=== PATIENT | female | born 1945 | race Caucasian/White ===

== ENCOUNTER 2016-12-02 14:27 | Inpatient (IN) | payer MEDICARE ==
[~2016-12-02] VITALS: Ht 149.9 cm; Wt 91.0 kg
[~2016-12-02 14:27] MED LIST changes: -3-IN3MIS; -BACT800T5 PO; -CANE; -CYCL1TAB29 PO; -DOCU1CAP39 PO; -ENOX40P SQ; -GABA100C4 PO; -GETGO ROLLING W1 MI1; -LIDO5DIS35 T-DERMAL; -LYRI75CA PO; -OXYC-392 PO; -OXYC1CAP PO; -SULFPOW
[2016-12-02] MEDS ORDERED: BACT800T5 PO (16:49)
--- NOTE | 2016-12-05 18:12 | MH ---
cc: ANGELA GONZALES M.D., DAVID K. M.D. ARAB, DINESH MD DATE OF ADMISSION 12/06/2016 ADMISSION DIAGNOSIS Lumbar degenerative disk disease. HISTORY OF PRESENT ILLNESS This is a 71-year-old female who presented to us for evaluation of low back pain. She a year ago had bilateral hip pain and saw an orthopedist who evaluated her and said it was in her hips and recommended physical therapy for her back. She states she did this and her pain improved over the summer. In June of 2016 she had an injection in her neck for neck pain as she states that her pain was exacerbated in her neck and had to go to the emergency room for relief. She states her pain in the low back also became exacerbated. She states the pain radiates intermittently into the lower extremities all over. She states she has soreness all the time in her lower extremities. She gets cramps in her feet and an electrical sensation in her calves. She has numbness in her low back and it extends into the right anterior thigh. Standing is more comfortable position for her and lying down is the worst position. She relates that walking aggravates her pain and she is unable to lean for to alleviate some of the pain. She is very tearful and frustrated with her activity restriction and her pain. She has been using one to two Lortab a day although her pain is not controlled with this. We have previously seen her in 2014 for cervical stenosis and recommended conservative management. She complains of ongoing neck pain but states her low back symptoms are worse at this point. PAST MEDICAL HISTORY Significant for: 1. Hypertension. 2. Gastroesophageal reflux disease. 3. Headaches. 4. Bilateral carpal tunnel release in 1999. 5. Arthroscopic knee surgery in 2006. 6. Rotator cuff repair in her shoulder. 7. Sinus surgery. 8. Cholecystectomy. ALLERGIES TO MEDICATIONS SHE IS ALLERGIC TO LEVAQUIN. CURRENT MEDICATIONS 1. She is on aspirin 81 mg daily. 2. Lisinopril 40 mg daily. 3. Hydrochlorothiazide 12.5 mg daily. 4. Digoxin 0.125 mg daily. 5. Delzicol 400 mg two tablets three times a day. 6. Pantoprazole 40 mg daily. 7. Vitamin D3 5000 daily. FAMILY HISTORY Mother is at 75 years old, had cancer. Father is at 65 years old, had myocardial infarction. Her sister is alive at 78 years old, had a stroke. She has another sister who is 77 years old and lives in chronic pain. She has a brother who is alive 76 years old, has heart disease. Another brother who is at unknown age of cancer. And another brother who is 70 and has diabetes. SOCIAL HISTORY She is retired. She has children. She does not smoke although has previously smoked. She drinks 0-2 drinks of alcohol per day. REVIEW OF SYSTEMS CONSTITUTIONAL: She denies any fever or chills. EARS, NOSE, AND THROAT: No pharyngitis or exudate or bloody drainage from her nose. CARDIOVASCULAR: She denies any chest pain, palpitations. RESPIRATORY: No cough or shortness of breath. GENITOURINARY: No dysuria or hematuria. MUSCULOSKELETAL: Positive for neck and low back pain. SKIN: No rashes or pruritus. NEUROLOGIC: No difficulty with speech or memory. GASTROINTESTINAL: No abdominal pain or constipation. No nausea. PSYCHIATRIC: No anxiety or depression symptoms. ENDOCRINE: No polyuria or polydipsia. HEMATOLOGIC: No bleeding tendencies but positive for bruising tendencies. PHYSICAL EXAMINATION HEAD: Normocephalic, atraumatic. NECK: Supple. No carotid bruits heard on auscultation. LUNGS: Clear to auscultation bilaterally. HEART: Regular rate and rhythm. Normal S1-S2. ABDOMEN: Soft and nontender. Positive bowel sounds. SKIN: Reveals no cyanosis or erythema. MUSCULOSKELETAL: She has 5/5 strength in the upper and lower extremities. NEUROLOGICAL: Awake and alert, oriented. Cranial nerves II through XII appear grossly intact. Speech is fluent. Comprehension is good. Patellar reflexes are 2+ bilaterally. Achilles reflexes are absent. IMAGING Data reviewed, reviewed an MRI of the lumbar spine from September 16, 2016 which reveals a grade 1 L4-L5 spondylolisthesis along with disk protrusion and facet hypertrophy and disk degeneration with overall moderate to severe spinal stenosis. There is lesser degree of degenerative changes at the L2-L3, L3-L4 levels. IMPRESSION A 71-year-old female with chronic history of low back pain along with neurogenic claudication symptoms as well as chronic neck pain. She has failed conservative treatment measures including physical therapy and her symptoms are progressive and debilitating with very restricted activity status at this point. She has significant L4-L5 spinal stenosis along with degenerative disk disease and facet arthropathy and grade 1 / 2 spondylolisthesis. PLAN We have discussed treatment options with the patient and she is requesting that we proceed with surgical intervention and we have recommended a L4-L5 transforaminal decompression interbody fusion in detail. We have obtained cardiac clearance from Dr. Martinez. We have discussed the risks involved with surgery which include but not limited to bleeding, infection, muscle weakness, voice hoarseness, difficulty swallowing, heart attack, stroke, blood clots, non fusion, scar tissue formation among others. The patient states that she understands the procedure as well as the risks involved and she is requesting that we proceed and she is therefore scheduled accordingly. DICTATED BY: Mark Webb PA-C MD PEBBLES Gross/KK /5:24 PM /5:49 PM
[2016-12-06] MEDS ORDERED: METOPROLOL TARTRATE 25 MG TAB PO PRN (06:30)
[2016-12-06] MEDS ORDERED: SODIUM CHLORID 0.9% 500 ML IV PRN (06:30)
[2016-12-06] MEDS ORDERED: CHLORHEXIDINE GLUCONATE 2 % 1 PACK (2 CLOTHS) TOPICAL PRN (06:30)
[2016-12-06] MEDS: SODIUM CHLOR 0.9% 1000 ML INJ 1,000 ML IV SCH ×2 (06:30→06:57)
[2016-12-06] MEDS ORDERED: VANCOMYCIN HCL 1000 MG ON-CALL/NS 250 ML IV SCH ×2 (06:30)
[2016-12-06] MEDS ORDERED: LACTATED RINGER'S 1000 ML IV PRN (06:30)
[2016-12-06] MEDS ORDERED: POVIDONE IODINE 5% (ANTISEPSIS KIT) 4 APPLICATIONS EACH NARE PRN (06:30)
[2016-12-06] MEDS ORDERED: INSULIN HUMAN REGULAR 1,000 UNITS/10 ML VIAL SQ PRN (06:30)
[2016-12-06 06:51] VITALS: BP 140/64; PULSE 76; RESP 20; TEMP 97.9; O2SAT 96
[2016-12-06] MEDS ORDERED: THROMBIN (TOPICAL) 5,000 UNIT VIAL ONE (07:18)
[2016-12-06] MEDS ORDERED: GELFOAM SIZE 100 ONE (07:19)
[2016-12-06] MEDS ORDERED: MIDAZOLAM HCL 2 MG/2 ML VIAL ONE (08:48)
[2016-12-06] MEDS ORDERED: fentaNYL CITRATE 250 MCG/5 ML AMP ONE (08:48)
[2016-12-06] MEDS ORDERED: HYDROmorphone HCL PF 2 MG/ML VIAL ONE (08:48)
[2016-12-06] MEDS: BUPIVACAINE/EPINEPHRINE 0.5% PF 30 ML VIAL ONE ×2 (09:39→11:31)
[2016-12-06] MEDS: VANCOMYCIN HCL 1000 MG VIAL ONE ×2 (09:45→11:31)
[2016-12-06] MEDS ORDERED: NEOSTIGMINE 3 MG/3 ML SYR IV ONE (12:00)
[2016-12-06] MEDS ORDERED: PROPOFOL 200 MG/20 ML AMP IV ONE (12:00)
[2016-12-06] MEDS ORDERED: NORMOSOL R INJ 2,000 ML IV ONE (12:00)
[2016-12-06] MEDS ORDERED: ePHEDrine/NS 25 MG/5 ML SYR IV ONE (12:00)
[2016-12-06] MEDS ORDERED: ONDANSETRON HCL 4 MG/2 ML VIAL IV PUSH ONE (12:00)
[2016-12-06] MEDS ORDERED: LACTATED RINGER'S 1000 ML INJ 1,000 ML IV ONE (12:00)
[2016-12-06] MEDS: NS + KCL 20 MEQ INJ 1,000 ML IV SCH ×2 (12:25→21:02)
[2016-12-06] MEDS ORDERED: ZOLPIDEM TARTRATE 5 MG TAB PO PRN (12:30)
[2016-12-06] MEDS ORDERED: diphenhydrAMINE HCL 50 MG/ML VIAL IV PRN (12:30)
[2016-12-06] MEDS ORDERED: ONDANSETRON HCL 4 MG/2 ML VIAL IV PRN (12:30)
[2016-12-06] MEDS ORDERED: POTASSIUM CHLOR 20 MEQ PREMIX 100 ML IV PRN (12:30)
[2016-12-06] MEDS ORDERED: RESP: ALBUTEROL 2.5 MG/3 ML NEB (PRN) NEB (12:30)
[2016-12-06] MEDS ORDERED: ACETAMINOPHEN 325 MG TAB PO PRN (12:30)
[2016-12-06] MEDS ORDERED: NALOXONE HCL 0.4 MG/ML AMP IV PRN (12:30)
[2016-12-06] MEDS ORDERED: ALUMINUM/MAGNESIUM/SIMETH 30 ML CUP PO PRN (12:30)
[2016-12-06] MEDS ORDERED: MAGNESIUM HYDROXIDE SUSP 30 ML CUP PO PRN (12:30)
[2016-12-06] MEDS ORDERED: PROCHLORPERAZINE INJ 10 MG/2 ML VIAL IV PUSH PRN (12:30)
[2016-12-06] MEDS ORDERED: MAGNESIUM SULFATE INJ 2 GM in SODIUM CHLORIDE 0.9% INJ 100 ML IV PRN (12:30)
[2016-12-06] MEDS ORDERED: CALCIUM GLUCONATE INJ 1 GM in SODIUM CHLORIDE 0.9% INJ 100 ML IV PRN (12:30)
[2016-12-06] MEDS ORDERED: cloNIDine HCL 0.1 MG TAB PO PRN (12:30)
[2016-12-06] MEDS ORDERED: ACETAMINOPHEN/HYDROcodone 325 MG/10 MG TAB PO PRN ×2 (12:30)
[2016-12-06] MEDS ORDERED: SODIUM CHLORIDE 0.9% FLUSH 10 ML FLUSH IV FLUSH PRN (12:30)
[2016-12-06] MEDS ORDERED: MENTHOL LOZENGE BUCCAL PRN (12:30)
--- NOTE | 2016-12-06 12:30 | PD.OP ---
Charbel Garza MD Operative Report Date of Surgery: Dec 06, 2016 Preoperative Diagnosis: Intractable low back pain with neurogenic claudication; lumbar L4-5 degenerative disc disease with facet and ligamentum flavum hypertrophy with associated spinal stenosis and grade 1 spondylolisthesis Postoperative Diagnosis: Same Procedure: Lumbar L4-5 transforaminal interbody fusion; L4-5 decompressive laminectomy; L4- 5 pedicle screw fixation; L4-5 interbody cage placement; microsurgical technique Anesthesia: Gen. endotracheal by Aaron Rebollar Surgeon: Darien Yoder M.D. Scientific Database Curator(s): Aarti Moreno Operation and Findings: Following initiation of general endotracheal anesthesia, the patient had a Cortés catheter placed along with sequential compression devices. A gram of vancomycin was administered intravenously and she was turned in a prone position on a Feroz frame, on a Huey table, and all pressure points adequately padded. The lumbosacral region was then prepped with Chloraprep and sterilely draped with Ioban along the usual sterile draping. A right paraspinal skin incision was then made extending from the L4-L5 level after infiltrating the skin with 0.5% Marcaine with epinephrine solution extending down through the fascia. The muscle fibers were split using avascular fatty plane and detached from the underlying facets, transverse process and lateral portion of lamina on the right side and a self-retaining retractor used for exposure. Intraoperative fluoroscopy was also used for level of confirmation along with microscope magnification for further dissection. There was significant facet and ligamentum flavum hypertrophy noted at the L4-5 levels. Right L4-5 facet was resected with a drill bit along with the lamina and there was severe foraminal and spinal stenosis from hypertrophied ligamentum flavum and facet which were decompressed bilaterally through the unilateral approach. There was significant disc height collapse along with disc protrusion and spondylolisthesis also leading to the foraminal stenosis. Epidural hemostasis was achieved with bipolar cautery and Gelfoam with thrombin. Subsequently entered into the disc space at the L4-5 level with a #15 blade and gracia were used for discectomy. I then placed PEEK cage packed with local autograft bone and more local autograft bone was packed adjacent to the cage in interspace for added interbody fusion. With placement of the cage, I was able to distract the interspace and opened up the foramen further bilaterally. Subsequently in order to facilitate the fusion and provide stabilization, pedicle screw fixation was undertaken using [place] spine screws on entry point at the right L4-5 levels at the junction of the transverse process and facet. Subsequently using AP and lateral fluoroscopy tap and screw placement. The screws were then connected with a ezio and locked in place with caps. The construct appeared very secure at this point. The area was then copiously irrigated with Vancomycin solution and powder. The retractors were removed and the bipolar cautery used for hemostasis. The muscle fascia was then approximated using 2-0 Vicryl interrupted stitches and then 3-0 Vicryl subcuticular stitches also placed in interrupted fashion. The final skin closure was completed with Mastisol and Steri-Strips. A sterile dressing was then applied. The patient then turned in supine position, extubated and taken to recovery room. There were no intraoperative complications. All sponge and needle counts were correct at the end of procedure. Estimated blood loss about 200 ml. Darien Yoder MD Dec 06, 2016 12:30
[2016-12-06] MEDS ORDERED: DO NOT ADM ANY ANTICOAGULANT DRUGS PRN (12:45)
[2016-12-06 13:24] LABS: AUTOMATED NEUTROPHIL # 7.9 TH/MM3 (1.8-7.7); BASOPHIL % 0.2 % (0.0-2.0); EOSINOPHIL % 0.1 % (0.0-4.0); HEMATOCRIT 34.3 % (35.0-46.0); HEMO FLAGS DIFF FINAL; LYMPH % 7.1 % (9.0-44.0); LYMPHOCYTE # 0.6 TH/MM3 (1.0-4.8); MEAN CELL VOLUME 90.6 FL (80.0-100.0); MEAN CORPUSCULAR HEMOGLOBIN 30.9 PG (27.0-34.0); MEAN CORPUSCULAR HGB CONC 34.1 % (32.0-36.0); MONO % 1.7 % (0.0-8.0); NEUT % 90.9 % (16.0-70.0); PLATELET COUNT 220 TH/MM3 (150-450); RED BLOOD COUNT 3.79 MIL/MM3 (4.00-5.30); RED CELL DISTRIBUTION WIDTH 13.3 % (11.6-17.2); WHITE BLOOD COUNT 8.7 TH/MM3 (4.0-11.0)
[2016-12-06 13:42] LABS: BICARBONATE 28.5 MEQ/L (21.0-32.0)
[2016-12-06] MEDS: PCA - TOTAL MG MORPHINE DELIVERED PER SHIFT SCH ×2 (14:00→21:27)
[2016-12-06] MEDS: MORPHINE SULFATE 30 MG/30 ML PCA IV SCH (14:29)
[2016-12-06 16:00] VITALS: BP 102/51; PULSE 61; RESP 18; TEMP 96.8; O2SAT 94
--- NOTE | 2016-12-06 17:20 | RADRPT ---
EXAM DATE/TIME: 12/06/2016 09:17 [facility] COMPARISON: No previous studies available for comparison. EXTERNAL COMPARISON : [facility] INDICATIONS : Fusion L4,L5 with screw and ezio placement., MEDICAL HISTORY : None. SURGICAL HISTORY : None. ENCOUNTER: Initial ACUITY: 1 day PAIN SCORE: Non-responsive. LOCATION: Lumbar spine. FINDINGS: There is anterior and posterior fusion with pedicle screws and interbody graft from L4-L5. The alignm ent is anatomic. CONCLUSION: 1. Postsurgical changes as above. Charbel Stubbs MD on December 06, 2016 at 17:18 Board Certified Radiologist. This report was verified electronically.
[2016-12-06 20:00] VITALS: BP 117/57; PULSE 71; RESP 17; TEMP 96.5; O2SAT 95
[2016-12-06] MEDS: sulfaSALAzine EC 500 MG TABEC PO SCH (20:57)
[2016-12-06] MEDS: SODIUM CHLORIDE 0.9% FLUSH 10 ML FLUSH IV FLUSH SCH (21:00)
[2016-12-06] MEDS: DOCUSATE SODIUM 100 MG CAP PO SCH (21:01)
[2016-12-06] MEDS: SULFAMETHOXAZOLE-TRIMETHOPRIM DS 800-160 MG TAB PO SCH (21:01)
[2016-12-07] VITALS: BP 109/55; PULSE 67; RESP 16; TEMP 96.5; O2SAT 96
[2016-12-07 04:00] VITALS: BP 119/77; PULSE 73; RESP 17; TEMP 97.3; O2SAT 95
[2016-12-07] MEDS: MORPHINE SULFATE 30 MG/30 ML PCA IV SCH (05:36)
[2016-12-07] MEDS: PCA - TOTAL MG MORPHINE DELIVERED PER SHIFT SCH ×3 (05:58→17:32)
[2016-12-07] MEDS: SODIUM CHLOR 0.9% 1000 ML INJ 1,000 ML IV SCH (06:00)
[2016-12-07 08:00] VITALS: BP 117/50; PULSE 85; RESP 18; TEMP 100.7; O2SAT 94
[2016-12-07] MEDS: DOCUSATE SODIUM 100 MG CAP PO SCH ×2 (09:22→19:29)
[2016-12-07] MEDS: SULFAMETHOXAZOLE-TRIMETHOPRIM DS 800-160 MG TAB PO SCH ×2 (09:22→19:29)
[2016-12-07] MEDS: FOLIC ACID 1 MG TAB PO SCH (09:22)
[2016-12-07] MEDS: HYDROCHLOROTHIAZIDE 12.5 MG CAP PO SCH (09:23)
[2016-12-07] MEDS: LOSARTAN 25 MG TAB PO SCH (09:24)
[2016-12-07] MEDS: DIGOXIN 0.125 MG TAB PO SCH (09:24)
[2016-12-07] MEDS: ASPIRIN EC 81 MG TABEC PO SCH (09:24)
[2016-12-07] MEDS: POLYETHYLENE GLYCOL 17 GM PKG PO SCH (09:26)
[2016-12-07] MEDS: PANTOPRAZOLE SOD 40 MG DELAYED RELEASE TAB PO SCH (09:26)
[2016-12-07] MEDS: sulfaSALAzine EC 500 MG TABEC PO SCH ×2 (09:31→19:29)
[2016-12-07] MEDS: SODIUM CHLORIDE 0.9% FLUSH 10 ML FLUSH IV FLUSH SCH ×2 (09:34→19:29)
--- NOTE | 2016-12-07 10:33 | HHI.NSPN ---
(Mark Webb) History Chief Complaint: incisional back pain. (Mark Webb) Interval History 12/07/16: Patient awake and alert. She is sitting up in a chair with the LSO brace and place. She complains of incisional back pain. She is using a morphine ELECTRICAL AND INSTRUMENTATION MANAGER but states she still has a lot of pain. She denies any radiculopathy or paresthesias in her lower extremities. She did say that she has some paresthesias in the anterior and posterior right leg yesterday but this has resolved this morning. She states the oral pain medication makes her nauseated secondary to the Tylenol and she is therefore not using it. (Mark Webb) Review of Systems Respiratory: Negative for: shortness of breath, cough, sputum Cardiovascular: Negative for: chest pain Gastrointestinal: Negative for: nausea, vomitting, diarrhea, constipation ( Mark Webb) Exam Results Vital Signs Date Time Temp Pulse Resp B/P Pulse Ox O2 Delivery O2 Flow Rate FiO2 12/07/16 08:00 100.7 85 18 117/50 94 12/06/16 20:48 Nasal Cannula 2.00 Intake and Output 12/06/16 12/06/16 12/07/16 08:00 16:00 00:00 Intake Total 2273 ml 942 ml Output Total 850 ml 600 ml Balance 1423 ml 342 ml (Mark Webb) Physical Examination Respiratory: Clear to auscultation bilaterally Heart: regular rate and rhythm normal S1 and S2. Abdomen: Soft positive bowel sounds. Skin: No cyanosis or erythema in the lower extremity. Muscle: Patient moves lower 70s with 5 out of 5 strength. She is sitting up in a chair with LSO brace in place. Neuro: Patient awake and alert speech is fluent, comprehension is good (Mark Webb) Lab, Micro, Other Results Last Impressions Lumbar Spine X-Ray 12/06/16 0000 Signed Impressions: Service Date/Time: Tuesday, December 06, 2016 09:17 - CONCLUSION: 1. Postsurgical changes as above. Charbel Stubbs MD Laboratory Tests Test 12/06/16 13:11 White Blood Count 8.7 TH/MM3 Red Blood Count 3.79 MIL/MM3 Hemoglobin 11.7 GM/DL Hematocrit 34.3 % Mean Corpuscular Volume 90.6 FL Mean Corpuscular Hemoglobin 30.9 PG Mean Corpuscular Hemoglobin 34.1 % Concent Red Cell Distribution Width 13.3 % Platelet Count 220 TH/MM3 Mean Platelet Volume 7.8 FL Neutrophils (%) (Auto) 90.9 % Lymphocytes (%) (Auto) 7.1 % Monocytes (%) (Auto) 1.7 % Eosinophils (%) (Auto) 0.1 % Basophils (%) (Auto) 0.2 % Neutrophils # (Auto) 7.9 TH/MM3 Lymphocytes # (Auto) 0.6 TH/MM3 Monocytes # (Auto) 0.2 TH/MM3 Eosinophils # (Auto) 0.0 TH/MM3 Basophils # (Auto) 0.0 TH/MM3 CBC Comment DIFF FINAL Differential Comment Sodium Level 139 MEQ/L Potassium Level 4.0 MEQ/L Chloride Level 103 MEQ/L Carbon Dioxide Level 28.5 MEQ/L Anion Gap 8 MEQ/L Blood Urea Nitrogen 11 MG/DL Creatinine 0.93 MG/DL Estimat Glomerular Filtration 59 ML/MIN Rate Random Glucose 159 MG/DL Calcium Level 8.3 MG/DL Magnesium Level 2.0 MG/DL 12/06/16 12/06/16 12/07/16 15:00 23:00 07:00 Intake Total 2273 ml 942 ml 1159 ml Output Total 850 ml 600 ml 1200 ml Balance 1423 ml 342 ml -41 ml Intake Oral 360 ml 240 ml IV Total 173 ml 582 ml 919 ml Other 2100 ml Output Urine Total 650 ml 600 ml 1200 ml Estimated Blood Loss 200 ml # Voids 1 # Bowel Movements 0 0 (Mark Webb) Medical Decision Making Impression and Plan A: 71-year-old female status post L4/L5 TLIF with interbody cage and pedicle screw fixation. POD #1 Plan: Patient will be placed on hydrocodone without Tylenol for better pain control. She will use the morphine ELECTRICAL AND INSTRUMENTATION MANAGER for breakthrough pain. Possibly discontinue this tomorrow if her pain is better controlled on oral therapy. Continue with physical therapy. (Mark Webb) Attending Statement The exam, history, and the medical decision-making described in the above note were completed with the assistance of the mid-level provider. I reviewed and agree with the findings presented. I attest that I had a [id number] encounter with the patient on the same day, and personally performed and documented my assessment and findings in the medical record. (Darien Yoder MD) Mark Webb Dec 07, 2016 10:33 Darien Yoder MD Dec 07, 2016 16:57
[2016-12-07 12:00] VITALS: BP 115/54; PULSE 86; RESP 18; TEMP 99.7; O2SAT 93
[2016-12-07 16:00] VITALS: BP 105/48; PULSE 78; RESP 18; TEMP 100.3; O2SAT 92
[2016-12-07] MEDS ORDERED: MORPHINE SULFATE 4 MG/ML INJ IV PUSH PRN (17:00)
[2016-12-07 19:38] VITALS: BP 116/57; PULSE 88; RESP 19; TEMP 97.6; O2SAT 95
[2016-12-08 00:26] VITALS: BP 121/54; PULSE 85; RESP 18; TEMP 99.8; O2SAT 96
[2016-12-08 08:00] VITALS: BP 130/53; PULSE 83; RESP 18; TEMP 101.2; O2SAT 94
[2016-12-08] MEDS: DOCUSATE SODIUM 100 MG CAP PO SCH ×2 (08:06→21:34)
[2016-12-08] MEDS: SULFAMETHOXAZOLE-TRIMETHOPRIM DS 800-160 MG TAB PO SCH ×2 (08:06→21:33)
[2016-12-08] MEDS: ASPIRIN EC 81 MG TABEC PO SCH (08:06)
[2016-12-08] MEDS: HYDROCHLOROTHIAZIDE 12.5 MG CAP PO SCH (08:06)
[2016-12-08] MEDS: PANTOPRAZOLE SOD 40 MG DELAYED RELEASE TAB PO SCH (08:06)
[2016-12-08] MEDS: POLYETHYLENE GLYCOL 17 GM PKG PO SCH (08:06)
[2016-12-08] MEDS: LOSARTAN 25 MG TAB PO SCH (08:07)
[2016-12-08] MEDS: DIGOXIN 0.125 MG TAB PO SCH (08:07)
[2016-12-08] MEDS: FOLIC ACID 1 MG TAB PO SCH (08:07)
[2016-12-08] MEDS: SODIUM CHLORIDE 0.9% FLUSH 10 ML FLUSH IV FLUSH SCH ×2 (08:16→21:38)
[2016-12-08] MEDS: sulfaSALAzine EC 500 MG TABEC PO SCH ×2 (08:16→21:34)
--- NOTE | 2016-12-08 09:13 | HHI.NSPN ---
(Mark Webb) History Chief Complaint: incisional back pain. (Mark Webb) Interval History 12/07/16: Patient awake and alert. She is sitting up in a chair with the LSO brace and place. She complains of incisional back pain. She is using a morphine DRYWALL BOARDHANGER but states she still has a lot of pain. She denies any radiculopathy or paresthesias in her lower extremities. She did say that she has some paresthesias in the anterior and posterior right leg yesterday but this has resolved this morning. She states the oral pain medication makes her nauseated secondary to the Tylenol and she is therefore not using it. 12/08/16: Pt awake and alert. Complains of incisional pain controlled with medication. Pt had a fever this morning of 101.2. No cough. No chest pain or sob. She states she has limited walking and has muscle aches in her anterior thighs with ambulation. (Mark Webb) Review of Systems General: Negative for: fever, chills, insomnia Respiratory: Negative for: shortness of breath, cough, sputum Cardiovascular: Negative for: chest pain Gastrointestinal: Negative for: nausea, vomitting, diarrhea, constipation ( Mark Webb) Exam Results Vital Signs Date Time Temp Pulse Resp B/P Pulse Ox O2 Delivery O2 Flow Rate FiO2 12/08/16 08:00 101.2 83 18 130/53 94 12/06/16 20:48 Nasal Cannula 2.00 Intake and Output 12/07/16 12/07/16 12/08/16 08:00 16:00 00:00 Intake Total 1159 ml 2026 ml 683 ml Output Total 1200 ml Balance -41 ml 2026 ml 683 ml (Mark Webb) Physical Examination Respiratory: Clear to auscultation bilaterally Heart: regular rate and rhythm normal S1 and S2. Abdomen: Soft positive bowel sounds. Skin: No cyanosis or erythema in the lower extremity. RN changed bandage. Clean and dry. Muscle: Patient moves lower 70s with 5 out of 5 strength. She is sitting up in a chair with LSO brace in place. Neuro: Patient awake and alert speech is fluent, comprehension is good (Mark Webb) Lab, Micro, Other Results Last Impressions Lumbar Spine X-Ray 12/06/16 0000 Signed Impressions: Service Date/Time: Tuesday, December 06, 2016 09:17 - CONCLUSION: 1. Postsurgical changes as above. Charbel Stubbs MD 12/07/16 12/07/16 12/08/16 15:00 23:00 07:00 Intake Total 2026 ml 683 ml 480 ml Balance 2026 ml 683 ml 480 ml Intake Oral 1200 ml 360 ml 480 ml IV Total 826 ml 323 ml # Voids 2 2 2 # Bowel Movements 0 0 0 (Mark Webb) Medical Decision Making Impression and Plan A: 71-year-old female status post L4/L5 TLIF with interbody cage and pedicle screw fixation. POD #1 Plan: UA c+s. Pt was treated preoperatively for mild uti Encouraged Incentive spirometry. (Mark Webb) Attending Statement The exam, history, and the medical decision-making described in the above note were completed with the assistance of the mid-level provider. I reviewed and agree with the findings presented. I attest that I had a [id number] encounter with the patient on the same day, and personally performed and documented my assessment and findings in the medical record. [facility] placement tomorrow. (Darien Yoder MD) Mark Webb Dec 08, 2016 09:13 Darien Yoder MD Dec 08, 2016 13:29
[2016-12-08 10:44] LABS: BLOOD, URINE NEG (NEG); GLUCOSE,URINE NEG (NEG); HYALINE CAST, URINE 4 /lpf (RARE); KETONE, URINE 10 mg/dL (NEG); MUCUS URINE FEW /lpf (OCC); NITRITE,URINE NEG (NEG); SQUAMOUS EPITHELIAL CELL URINE 2 /hpf (0-5); TRANSITIONAL EPI CELLS, URINE <1 /hpf; URINE COLOR DARK-YELLOW (YELLW/STRAW)
[2016-12-08 10:45] LABS: COMMENT (UR) CULT NOT INDICATED; CULTURE IF INDICATED CULT NOT INDICATED
[2016-12-08 12:00] VITALS: BP 117/52; PULSE 75; RESP 18; TEMP 99.8; O2SAT 94
[2016-12-08] MEDS: CYCLOBENZAPRINE HCL 10 MG TAB PO PRN (15:08)
[2016-12-08] MEDS: ENOXAPARIN SODIUM 40 MG/0.4 ML SYRINGE SQ SCH (15:08)
[2016-12-08 16:00] VITALS: BP 121/50; PULSE 78; RESP 18; TEMP 100.1; O2SAT 96
[2016-12-08 20:40] VITALS: BP 117/65; PULSE 93; RESP 18; TEMP 100; O2SAT 92
[2016-12-09 00:21] VITALS: BP 109/54; PULSE 89; RESP 18; TEMP 100.9; O2SAT 92
[2016-12-09 08:00] VITALS: BP 140/61; PULSE 78; RESP 18; TEMP 98.5; O2SAT 96
--- NOTE | 2016-12-09 08:43 | HHI.NSPN ---
(Mark Webb) History Chief Complaint: incisional back pain. (Mark Webb) Interval History 12/07/16: Patient awake and alert. She is sitting up in a chair with the LSO brace and place. She complains of incisional back pain. She is using a morphine PIE FILLER but states she still has a lot of pain. She denies any radiculopathy or paresthesias in her lower extremities. She did say that she has some paresthesias in the anterior and posterior right leg yesterday but this has resolved this morning. She states the oral pain medication makes her nauseated secondary to the Tylenol and she is therefore not using it. 12/08/16: Pt awake and alert. Complains of incisional pain controlled with medication. Pt had a fever this morning of 101.2. No cough. No chest pain or sob. She states she has limited walking and has muscle aches in her anterior thighs with ambulation. 12/09/16: Pt awake and alert. Sitting up in chair. Complains of low back pain. Denies radicular pain but states she had a cramping pain in right posterior thigh. No paresthesias in LEs. (Mark Webb) Review of Systems General: Positive for: fever (low grade temp of 100s.), Negative for: chills, insomnia Respiratory: Negative for: shortness of breath, cough, sputum Cardiovascular: Negative for: chest pain Gastrointestinal: Negative for: nausea, vomitting, diarrhea, constipation ( Mark Webb) Exam Results Vital Signs Date Time Temp Pulse Resp B/P Pulse Ox O2 Delivery O2 Flow Rate FiO2 12/09/16 00:21 100.9 89 18 109/54 92 12/06/16 20:48 Nasal Cannula 2.00 Intake and Output 12/08/16 12/08/16 12/09/16 08:00 16:00 00:00 Intake Total 480 ml 960 ml 240 ml Balance 480 ml 960 ml 240 ml (Mark Webb) Physical Examination Respiratory: Clear to auscultation bilaterally Heart: regular rate and rhythm normal S1 and S2. Abdomen: Soft positive bowel sounds. Skin: No cyanosis or erythema in the lower extremity. RN changed bandage. Clean and dry. Muscle: Patient moves lower extremities with 5 out of 5 strength. She is sitting up in a chair with LSO brace in place. Neuro: Patient awake and alert speech is fluent, comprehension is good (Mark Webb) Lab, Micro, Other Results Last Impressions Lumbar Spine X-Ray 12/06/16 0000 Signed Impressions: Service Date/Time: Tuesday, December 06, 2016 09:17 - CONCLUSION: 1. Postsurgical changes as above. Charbel Stubbs MD Laboratory Tests Test 12/08/16 09:50 Urine Color DARK-YELLOW Urine Turbidity CLEAR Urine pH 6.0 Urine Specific [place] 1.016 Urine Protein TRACE mg/dL Urine Glucose (UA) NEG mg/dL Urine Ketones 10 mg/dL Urine Occult Blood NEG Urine Nitrite NEG Urine Bilirubin NEG Urine Urobilinogen LESS THAN 2.0 MG/DL Urine Leukocyte Esterase NEG Urine RBC 1 /hpf Urine WBC 4 /hpf Urine Squamous Epithelial 2 /hpf Cells Urine Transitional Epithelial <1 /hpf Cells Urine Hyaline Casts 4 /lpf Urine Mucus FEW /lpf Microscopic Urinalysis Comment CULT NOT INDICATED 12/08/16 12/08/16 12/09/16 15:00 23:00 07:00 Intake Total 960 ml 240 ml 240 ml Balance 960 ml 240 ml 240 ml Intake Oral 960 ml 240 ml 240 ml # Voids 3 2 1 # Bowel Movements 0 0 0 (Mark Webb) Medical Decision Making Impression and Plan A: 71-year-old female status post L4/L5 TLIF with interbody cage and pedicle screw fixation. Plan: Continue with incentive spirometry. Rehab placement. (Mark Webb) Attending Statement The exam, history, and the medical decision-making described in the above note were completed with the assistance of the mid-level provider. I reviewed and agree with the findings presented. I attest that I had a [id number] encounter with the patient on the same day, and personally performed and documented my assessment and findings in the medical record. (Darien Yoder MD) Mark Webb Dec 09, 2016 08:43 Darien Yoder MD Dec 09, 2016 08:58
[2016-12-09] MEDS: ASPIRIN EC 81 MG TABEC PO SCH (08:52)
[2016-12-09] MEDS: sulfaSALAzine EC 500 MG TABEC PO SCH (08:52)
[2016-12-09] MEDS: HYDROCHLOROTHIAZIDE 12.5 MG CAP PO SCH (08:52)
[2016-12-09] MEDS: DIGOXIN 0.125 MG TAB PO SCH (08:53)
[2016-12-09] MEDS: DOCUSATE SODIUM 100 MG CAP PO SCH (08:53)
[2016-12-09] MEDS: SULFAMETHOXAZOLE-TRIMETHOPRIM DS 800-160 MG TAB PO SCH (08:53)
[2016-12-09] MEDS: FOLIC ACID 1 MG TAB PO SCH (08:53)
[2016-12-09] MEDS: PANTOPRAZOLE SOD 40 MG DELAYED RELEASE TAB PO SCH (08:53)
[2016-12-09] MEDS: LOSARTAN 25 MG TAB PO SCH (08:53)
[2016-12-09] MEDS: SODIUM CHLORIDE 0.9% FLUSH 10 ML FLUSH IV FLUSH SCH (08:56)
[2016-12-09] MEDS: POLYETHYLENE GLYCOL 17 GM PKG PO SCH (08:56)
[2016-12-09] MEDS ORDERED: HYDR-3366 PO (08:58)
[2016-12-09] MEDS ORDERED: CYCL1TAB29 PO (08:58)
[2016-12-09] MEDS ORDERED: ENOX40P SQ (08:58)
--- NOTE | 2016-12-09 10:56 | RADRPT ---
EXAM DATE/TIME: 12/09/2016 10:42 [facility] COMPARISON: SPINE LUMBAR LTD (AP & LAT), December 06, 2016, 9:17. INDICATIONS : Fever. MEDICAL HISTORY : None. SURGICAL HISTORY : Fusion, lumbar. ENCOUNTER: Initial ACUITY: 3 days PAIN SCORE: 0/10 LOCATION: Bilateral chest FINDINGS: The heart is enlarged. There mild chronic appearing interstitial changes. The lungs are otherwise erick ar. There is no pleural effusion. The bony structures demonstrate degenerative changes but are otherw ise intact. CONCLUSION: 1. Cardiomegaly. No focal or segmental pneumonia identified. Arya Chopra MD on December 09, 2016 at 10:51 Board Certified Radiologist. This report was verified electronically.
[2016-12-09 11:38] LABS: AUTOMATED NEUTROPHIL # 9.5 TH/MM3 (1.8-7.7); BASOPHIL % 0.2 % (0.0-2.0); EOSINOPHIL % 0.3 % (0.0-4.0); HEMATOCRIT 34.7 % (35.0-46.0); HEMO FLAGS DIFF FINAL; LYMPH % 14.4 % (9.0-44.0); LYMPHOCYTE # 1.8 TH/MM3 (1.0-4.8); MEAN CELL VOLUME 90.2 FL (80.0-100.0); MEAN CORPUSCULAR HGB CONC 33.3 % (32.0-36.0); MONO % 9.3 % (0.0-8.0); NEUT % 75.8 % (16.0-70.0); PLATELET COUNT 195 TH/MM3 (150-450); RED BLOOD COUNT 3.85 MIL/MM3 (4.00-5.30); WHITE BLOOD COUNT 12.5 TH/MM3 (4.0-11.0)
[2016-12-09 12:00] VITALS: BP 96/52; PULSE 75; RESP 17; TEMP 99.8; O2SAT 98
[2016-12-09] MEDS: CYCLOBENZAPRINE HCL 10 MG TAB PO PRN (12:44)
[2016-12-09] MEDS: ENOXAPARIN SODIUM 40 MG/0.4 ML SYRINGE SQ SCH (14:27)
[2016-12-19] MEDS ORDERED: CANE (06:48)
[2016-12-19] MEDS ORDERED: 3-IN3MIS (06:48)
[2016-12-19] MEDS ORDERED: GETGO ROLLING W1 MI1 (06:48)
[2016-12-21] MEDS ORDERED: DIGO0.12 PO (08:31)
[2016-12-21] MEDS ORDERED: FOLI5CAP PO (08:31)
[2016-12-21] MEDS ORDERED: LOSA25TA PO (08:31)
[2016-12-21] MEDS ORDERED: CYCL1TAB29 PO (08:31)
[2016-12-21] MEDS ORDERED: OXYC-392 PO (08:31)
[2016-12-21] MEDS ORDERED: ASPI1TAB69 PO (08:31)
[2016-12-21] MEDS ORDERED: LYRI75CA PO (08:31)
[2016-12-21] MEDS ORDERED: SULF500T34 PO (08:31)
[2016-12-21] MEDS ORDERED: DOCU1CAP39 PO (08:31)
[2016-12-21] MEDS ORDERED: HYDR12.56 PO (08:31)
[2016-12-21] MEDS ORDERED: PANT40TA3 PO (08:31)
[2016-12-21] MEDS ORDERED: LIDO5DIS35 T-DERMAL (08:31)
[2017-01-06] MEDS ORDERED: LYRI75CA PO (16:05)
[2017-01-09] MEDS ORDERED: OXYC1CAP PO (16:33)
--- NOTE | 2017-01-27 15:54 | HHI.DS ---
Discharge Summary Admission Date Dec 06, 2016 at 06:06 Discharge Date: Dec 05, 2016 Admitting Diagnosis (1) Intractable low back pain Diagnosis: Principal ICD Code: M54.5 (2) Low back pain Diagnosis: Principal ICD Code: M54.5 (3) Facet arthropathy, lumbar Diagnosis: Principal ICD Code: M12.88 (4) Lumbar stenosis with neurogenic claudication Diagnosis: Principal ICD Code: M48.06 (5) Lumbar degenerative disc disease Diagnosis: Principal ICD Code: M51.36 (6) Spondylolisthesis of lumbar region Diagnosis: Principal ICD Code: M43.16 Procedures L4/L5 decompressive laminectomy with L4/L5 transforaminal interbody fusion with cage and pedicle screw fixation by Darien Yoder MD on 12/06/16. Brief History This is a 71-year-old female who presented to our office for evaluation of low back pain. She states a year ago she had bilateral hip pain in certain orthopedist who evaluated her and said there was not her hips and recommended physical therapy for her back. She states that she did this and her pain improved over the summer. In June 2016 she had an injection in her neck for neck pain and she states that her pain was exacerbated in her neck and back and head was emergency room for relief. She states the pain radiates intermittently into the lower extremities all over. She states that she has soreness all the time of the lower extremities. She gets cramps in her feet and electrical sensation in her cast. She has numbness in her low back and extends into the right anterior thigh. Standing is a more comfortable position for her laying down is the worst position. Walking aggravates her pain and she is very tearful and frustrated of her activity restriction and her pain. Imaging MRI of the lumbar spine from September 16, 2016 reveals a grade 1 L4/L5 spinal listhesis along with disc protrusion and facet hypertrophy and disc degeneration with overall moderate to severe spinal stenosis. There is a lesser degree of degenerative changes at the L2/L3, L3/L4 levels Hospital Course Patient underwent the above noted procedure performed by Dr. Yoder. There was no intraoperative complications. Postoperatively patient was admitted to the medical/surgical floor. PT was consult and her activity status was increased. Pain was controlled and her [employer] was discontinued. She was discharged to inpatient rehabilitation in stable condition. Pt Condition on Discharge: Stable Discharge Disposition: Rehab Inpatient Discharge Instructions DIET: Follow Instructions for: As Tolerated, No Restrictions ACTIVITIES You can perform: Shower Only-No Bath Activities to Avoid: Lifting/Bending, Prolonged Standing, Strenuous Activity, Bathing, Driving Discontinued Medications: Sulfamethoxazole-Trimethoprim (Bactrim DS) 800-160 Mg Tab 1 TAB PO BID Infection #14 Ref 0 TAB Mark Webb January 27, 2017 15:54
[2017-02-01] MEDS ORDERED: GABA100C4 PO (14:35)
== END 2016-12-09 15:14 | DRG 460 ==
LOC: HSDI 12-06 06:06 → N06A 12-06 15:36
PROVIDERS: ADMIT Neurological Surgery; ATTEND Neurological Surgery
PROC: 0SG00AJ Fusion of Lumbar Vertebral Joint with Interbody Fusion Device, Posterior Approach, Anterior Column, Open Approach (ICD-10-PCS; principal; 2016-12-06 08:51)
DX: M51.36 Other intervertebral disc degeneration, lumbar region (principal); N39.0 Urinary tract infection, site not specified; M43.16 Spondylolisthesis, lumbar region; M48.06 Spinal stenosis, lumbar region; I10 Essential (primary) hypertension; K21.9 Gastro-esophageal reflux disease without esophagitis; R51 Headache; G89.29 Other chronic pain; M54.2 Cervicalgia; R11.0 Nausea
CPT/HCPCS: 71020; 72100; 76000; 80048; 81001; 83735; 85025; 86850; 86900; 86901; 86920; 94150; C1713; J0690; J1170; J1650; J2250; J2270; J2405; J2710; J3010; J3370; J3480; J7030; J7050; J7120

== ENCOUNTER → 2016-12-02 | Outpatient (CLI) | payer MEDICARE ==
[~2016-12-02] MED LIST: 3-IN3MIS; ASPI1TAB69 PO; BACT800T5 PO; CANE; CYCL1TAB29 PO; DIGO0.12 PO; DOCU1CAP39 PO; ENOX40P SQ; FOLI5CAP PO; GABA100C4 PO; GETGO ROLLING W1 MI1; HYDR-3366 PO; HYDR12.56 PO; LIDO5DIS35 T-DERMAL; LOSA25TA PO; LYRI75CA PO; OXYC-392 PO; OXYC1CAP PO; PANT40TA3 PO; SULF500T34 PO; SULFPOW
[2016-12-02 15:07] LABS: AUTOMATED NEUTROPHIL # 6.2 TH/MM3 (1.8-7.7); BASOPHIL % 0.2 % (0.0-2.0); EOSINOPHIL # 0.2 TH/MM3 (0-0.4); EOSINOPHIL % 1.6 % (0.0-4.0); HEMATOCRIT 39.1 % (35.0-46.0); HEMO FLAGS DIFF FINAL; LYMPH % 23.3 % (9.0-44.0); LYMPHOCYTE # 2.2 TH/MM3 (1.0-4.8); MEAN CELL VOLUME 90.4 FL (80.0-100.0); MEAN CORPUSCULAR HEMOGLOBIN 30.9 PG (27.0-34.0); MEAN CORPUSCULAR HGB CONC 34.2 % (32.0-36.0); MONO % 9.3 % (0.0-8.0); NEUT % 65.6 % (16.0-70.0); PLATELET COUNT 259 TH/MM3 (150-450); RED BLOOD COUNT 4.32 MIL/MM3 (4.00-5.30); WHITE BLOOD COUNT 9.5 TH/MM3 (4.0-11.0)
[2016-12-02 15:12] LABS: BACTERIA, URINE RARE /hpf; BLOOD, URINE NEG (NEG); COMMENT (UR) CULT NOT INDICATED; CULTURE IF INDICATED CULT NOT INDICATED; GLUCOSE,URINE NEG (NEG); KETONE, URINE NEG (NEG); NITRITE,URINE NEG (NEG); PH, URINE 5.5 (5.0-8.5); SQUAMOUS EPITHELIAL CELL URINE <1 /hpf (0-5); TRANSITIONAL EPI CELLS, URINE <1 /hpf; URINE COLOR YELLOW (YELLW/STRAW)
[2016-12-02 15:20] LABS: APTT (PATIENT) 27.7 SEC (24.3-30.1); PROTHROMBIN TIME - PATIENT 10.5 SEC (9.8-11.6)
[2016-12-02 15:38] LABS: ALT (GPT) 22 U/L (10-53); ANION GAP 7 MEQ/L (5-15); AST (GOT) 15 U/L (15-37); BICARBONATE 32.3 MEQ/L (21.0-32.0); BLOOD UREA NITROGEN 15 MG/DL (7-18); CHLORIDE 103 MEQ/L (98-107); GLOMERULAR FILTRATION RATE 70 ML/MIN (>89); GLUCOSE,FASTING 107 MG/DL (74-99); POTASSIUM 4.1 MEQ/L (3.5-5.1); SODIUM (NA) 142 MEQ/L (136-145)
[2016-12-02 15:40] LABS: ALKALINE PHOSPHATASE 83 U/L (45-117); TOTAL BILIRUBIN ADULT 0.4 MG/DL (0.2-1.0)
--- NOTE | 2016-12-06 10:16 | EKG ---
Date Performed: 12/02/2016 Time Performed: 14:27:38 PTAGE: 71 years EKG: Sinus rhythm LEFT BUNDLE BRANCH BLOCK Compared to previous tracing, the patient is no longer bradycardic . ABNORM AL ECG PREVIOUS TRACING : 05/13/2012 20.23 DOCTOR: Enriqueta Taveras Interpretating Date/Time 12/06/2016 10:16:12
== END ==
LOC: CPRE 13:45
PROVIDERS: ATTEND Neurological Surgery
DX: Z01.810 Encounter for preprocedural cardiovascular examination (principal); Z01.812 Encounter for preprocedural laboratory examination; Z01.818 Encounter for other preprocedural examination; Z79.01 Long term (current) use of anticoagulants; R94.31 Abnormal electrocardiogram [ECG] [EKG]; I10 Essential (primary) hypertension; M51.36 Other intervertebral disc degeneration, lumbar region; M43.16 Spondylolisthesis, lumbar region; M48.06 Spinal stenosis, lumbar region
CPT/HCPCS: 36415; 80053; 81001; 85025; 85610; 85730; 93005